=== PATIENT | male | born 1985 ===

== ENCOUNTER 2018-06-23 19:33 | Outpatient (REF) | payer MEDICAID, SELFPAY ==
[2018-06-23 20:30] LABS: Bacteria Negative HPF (Negative); C & S Indicated? No; Casts Negative LPF (Negative); Crystals Negative HPF (Negative); Epithelial Cells Rare HPF (Negative); Mucus Negative (Negative); Other Cells Rare Yeast (Negative); RBC 0-2 (0-2); WBC 0-2 HPF (0-5)
[2018-06-23 20:35] LABS: ALT 33 U/L (12-78); AST 19 U/L (15-37); Alkaline Phosphatase 101 U/L (46-116); Anion Gap 4.5 mmol/L (3-11); BUN 14 mg/dL (7-18); CO2 29.5 mmol/L (21.0-32.0); CREATININE 1.17 mg/dL (0.70-1.30); Chloride 103 mmol/L (98-107); Glucose 158 mg/dL (70-100); Potassium 4.4 mmol/L (3.5-5.1); Sodium 137 mmol/L (136-145); Total Protein 7.3 g/dL (6.4-8.2)
== END 2018-06-23 19:53 ==
LOC: NCHCN 19:33
PROVIDERS: PCP Family Medicine; Visit Provider Nurse Practitioner Family
DX: I10 Essential (primary) hypertension (principal)
CPT/HCPCS: 80053; 81015

== ENCOUNTER 2019-04-27 08:31 | Outpatient (REF) | payer MEDICAID, SELFPAY ==
[2019-04-27 19:54] LABS: Calculated LDL 98 mg/dL; Cholesterol 158 mg/dL (50-200); HDL Cholesterol 48 mg/dL (40-60); Triglyceride 63 mg/dL (30-150)
== END 2019-04-27 08:51 ==
LOC: NCHCN 08:31
PROVIDERS: PCP Family Medicine; Visit Provider Nurse Practitioner Family
DX: Z13.220 Encounter for screening for lipoid disorders (principal)
CPT/HCPCS: 80061; 83721

== ENCOUNTER 2020-07-31 19:31 | Outpatient (REF) | payer SELFPAY ==
[2020-08-06 00:22] LABS: SARS-CoV-2 RNA Undetected (Undetected); SARS-CoV-2 Specimen Source Nasal
== END 2020-07-31 19:51 ==
LOC: NCHCN 19:31
PROVIDERS: PCP Family Medicine; Visit Provider Internal Medicine
DX: Z20.828 Contact with and (suspected) exposure to other viral communicable diseases (principal)
CPT/HCPCS: U0003

== ENCOUNTER 2020-12-22 10:17 | Outpatient (REF) | payer SELFPAY ==
[2020-12-23 11:32] LABS: COVID-19 RT-PCR UVMMC Result Negative (Negative)
== END 2020-12-22 10:18 | disposition home or self-care (01) ==
LOC: NCHCN 10:17
PROVIDERS: PCP Family Medicine; Visit Provider Internal Medicine
DX: Z20.822 Contact with and (suspected) exposure to COVID-19 (principal)
CPT/HCPCS: U0003

== ENCOUNTER 2024-08-13 18:21 | Outpatient (REF) | payer OTHER, SELFPAY ==
[2024-08-13 19:44] LABS: ALT 49 U/L (16-63); AST 34 U/L (15-37); Albumin 3.9 g/dL (3.4-5.0); Alkaline Phosphatase 82 U/L (46-116); Anion Gap 7.2 mmol/L (3-11); BUN 13 mg/dL (7-18); Bilirubin, Total 0.28 mg/dL (0.2-1.0); CO2 28.8 mmol/L (21.0-32.0); Calcium 9.4 mg/dL (8.5-10.1); Calculated LDL 107 mg/dL (<100); Chloride 106 mmol/L (98-107); Cholesterol 181 mg/dL (<200); Estimated GFR 98.18 (mL/min/1.73m2); Glucose 83 mg/dL (74-106); HDL Cholesterol 54 mg/dL (40-60); Sodium 142 mmol/L (136-145); Total Protein 7.9 g/dL (6.4-8.2); Triglyceride 101 mg/dL (<150)
== END 2024-08-13 18:22 | disposition home or self-care (01) ==
LOC: NCHCN 18:21
PROVIDERS: PCP Family Medicine; Visit Provider Nurse Practitioner Family
DX: I10 Essential (primary) hypertension (principal)
CPT/HCPCS: 80053; 80061